=== PATIENT | male | born 1970 | race Caucasian/White ===

== ENCOUNTER 2021-04-13 20:57 | Emergency (ER) | payer OTHER ==
[~2021-04-13] VITALS: Ht 175.3 cm; Wt 99.8 kg
[~2021-04-13 20:57] MED LIST: CYCL10 PO; HYDACE5 PO; IBUP800 PO; OXYACE5T PO
== END 2021-04-13 22:09 | disposition home or self-care (01) ==
LOC: ER 20:57
DX: S93.601A Unspecified sprain of right foot, initial encounter (principal); F17.220 Nicotine dependence, chewing tobacco, uncomplicated; F17.290 Nicotine dependence, other tobacco product, uncomplicated; X50.1XXA Overexertion from prolonged static or awkward postures, initial encounter; Y93.02 Activity, running
CPT/HCPCS: 73630; 99283-25; A9270